=== PATIENT | female | born 1990 | race Caucasian/White ===

== ENCOUNTER 2025-02-13 11:05 | Emergency (ER) | payer OTHER ==
[~2025-02-13] VITALS: Ht 160 cm; Wt 104.8 kg
[2025-02-13 11:18] VITALS: RESP 20; TEMP 98.7
[2025-02-13 12:06] VITALS: PULSE 77
[2025-02-13] MEDS: AMOXICILLIN/CLAVULANATE K 875 MG TAB PO STA (12:06)
[2025-02-13] MEDS ORDERED: AMOX TR-K CLV1 EAC2 PO (12:08)
[2025-02-13] MEDS ORDERED: MUCINEX DM ER1 EACH PO (12:09)
[2025-02-13 12:17] VITALS: BP 142/89; PULSE 77; RESP 18; O2SAT 99
== END 2025-02-13 12:21 | disposition home or self-care (01) ==
LOC: FSED 11:14
DX: R05.9 Cough, unspecified (principal); J01.90 Acute sinusitis, unspecified; I10 Essential (primary) hypertension; Z11.52 Encounter for screening for COVID-19
CPT/HCPCS: 0223U; 83518; 87400; 99283

== ENCOUNTER 2025-05-01 14:00 | Emergency (ER) | payer OTHER ==
[~2025-05-01] VITALS: Ht 160 cm; Wt 106.6 kg
[~2025-05-01 14:00] MED LIST: AMOX TR-K CLV1 EAC2 PO; MUCINEX DM ER1 EACH PO
[2025-05-01] MEDS ORDERED: LOSARTAN POTASS25 MG PO (15:14)
[2025-05-01] MEDS: KETOROLAC TROMETHAMINE 30 MG/ML VIAL IM STA (16:00)
[2025-05-01 16:51] VITALS: PULSE 82; RESP 16; TEMP 97.9; O2SAT 97
[2025-05-01] MEDS ORDERED: CYCLOBENZAPRINE5 MG PO (16:59)
[2025-05-01] MEDS ORDERED: LOSARTAN POTASS50 MG PO (17:02)
== END 2025-05-01 17:10 | disposition home or self-care (01) ==
LOC: FSED 15:25
DX: M54.50 Low back pain, unspecified (principal); R11.0 Nausea; I10 Essential (primary) hypertension
CPT/HCPCS: 81003; 81025; 99284; J1885

== ENCOUNTER 2025-07-15 16:52 | Emergency (ER) | payer OTHER ==
[~2025-07-15] VITALS: Ht 160 cm; Wt 104.8 kg
[~2025-07-15 16:52] MED LIST changes: +CYCLOBENZAPRINE5 MG PO; +LOSARTAN POTASS25 MG PO; +LOSARTAN POTASS50 MG PO
[2025-07-15] MEDS: KETOROLAC TROMETHAMINE 30 MG/ML VIAL IV STA (18:59)
[2025-07-15] MEDS: ONDANSETRON HCL INJ 2MG/ML 2ML 2 MG/ML VIAL IV STA (19:03)
[2025-07-15] MEDS: LABETALOL HCL 5 MG/ML 20ML VIAL IV STA (19:20)
[2025-07-15 20:55] VITALS: PULSE 79; RESP 14; TEMP 98.9
[2025-07-15 21:11] VITALS: BP 159/88; PULSE 79; RESP 14; O2SAT 98
== END 2025-07-15 21:00 | disposition home or self-care (01) ==
LOC: FSED 17:31
DX: I10 Essential (primary) hypertension (principal); R51.9 Headache, unspecified
CPT/HCPCS: 70450; 71046; 80053; 81003; 81025; 83880; 84484; 85025; 99284; J1885; J2405; J3490; 93005